=== PATIENT | male | born 1970 | race Caucasian/White ===

== ENCOUNTER 2020-05-16 15:40 | Emergency (ER) | payer OTHER ==
[2020-05-16] MEDS ORDERED: HYDROmorphone 0.5 MG/0.5 ML SYRINGE IVP STA ×2 (15:55→17:09)
[2020-05-16] MEDS ORDERED: DIAZEPAM 5 MG/ML 2 ML INJ IVP STA (15:55)
[2020-05-16] MEDS ORDERED: KETOROLAC 15 MG/ML 1 ML VIAL IVP STA (15:55)
--- NOTE | 2020-05-16 16:01 | ED ---
General Adult HPI - General Chief complaint: Extremity Problem,Nontraumatic Stated complaint: lower back pain Time Seen by Provider: 05/16/20 15:51 Source: patient, EMS Mode of arrival: EMS Limitations: no limitations - History of Present Illness Initial comments: 49 year-old male patient presents to the emergency department for evaluation of low back pain that radiates down the left leg. Patient states that symptoms started about a week ago, seemed to be improving, then worsened again today. Patient states he does generally have some element of back pain, but nothing like this. Patient states he feels some tingling around his left buttock and in his left foot which is new for him with this pain. He denies any saddle anesthesia or loss of bowel or bladder control. He denies any fever or chills. He denies any injury causing the pain. Patient denies any recent rash, cough, shortness of breath, chest pain, abdominal pain, nausea, vomiting, diarrhea, constipation, dizziness, hematuria, dysuria, urinary urgency, urinary frequency, headache, visual changes, or any other complaints. - Related Data Previous Rx's Medication Instructions Recorded Cyclobenzaprine [Flexeril] 10 mg PO TID #15 tab 05/16/20 Ibuprofen [Motrin] 600 mg PO Q8HR PRN #30 tab 05/16/20 methylPREDNISolone [Medrol Dose 4 mg PO DIRECTED #1 pack 05/16/20 Pack] Allergies Allergy/AdvReac Type Severity Reaction Status Date / Time No Known Allergies Allergy Verified 05/16/20 15:48 Review of Systems ROS Statement: Those systems with pertinent positive or pertinent negative responses have been documented in the HPI. ROS Other: All systems not noted in ROS Statement are negative. Past Medical History Past Medical History: No Reported History History of Any Multi-Drug Resistant Organisms: None Reported Past Surgical History: No Surgical Hx Reported Past Psychological History: No Psychological Hx Reported Smoking Status: Current every day smoker Past Alcohol Use History: Occasional Past Drug Use History: Marijuana General Exam Limitations: no limitations General appearance: alert, in no apparent distress, other (This is a well- developed, well-nourished adult male patient in no acute distress. Vital signs upon presentation are pulse 79, respirations 20, blood pressure 172/70, pulse ox 99% on room air.) Eye exam: Present: normal appearance, PERRL, EOMI. Absent: scleral icterus, conjunctival injection, periorbital swelling ENT exam: Present: normal exam, normal oropharynx, mucous membranes moist Respiratory exam: Present: normal lung sounds bilaterally. Absent: respiratory distress, wheezes, rales, rhonchi, stridor Cardiovascular Exam: Present: regular rate, normal rhythm, normal heart sounds. Absent: systolic murmur, diastolic murmur, rubs, gallop, clicks Extremities exam: Present: normal inspection, full ROM, normal capillary refill, other (Skin to the lower extremities is pink, warm, dry. Cap refills less than 3 seconds. Pedal and posttibial pulses are 2+ and equal bilaterally.). Absent: tenderness, pedal edema, joint swelling, calf tenderness Neurological exam: Present: alert, oriented X3, CN II-XII intact Psychiatric exam: Present: normal affect, normal mood Skin exam: Present: warm, dry, intact, normal color. Absent: rash Course Vital Signs 05/16/20 05/16/20 05/16/20 15:44 15:48 17:26 Temperature 97.9 F Pulse Rate 79 87 Respiratory 20 17 Rate Blood Pressure 172/70 134/98 O2 Sat by Pulse 99 97 Oximetry Medical Decision Making - Medical Decision Making 49-year-old male patient presents to the emergency department today for evaluation of left low back pain with radiation down the left leg. Physical examination did reveal good neurovascular status of the left lower extremity. He is neurologically intact with no focal deficits. No leg weakness noted. He denied injury causing the pain but states he was bent over working on steff or trim while at work last week. Patient was given IV pain medication. Upon reevaluation is resting comfortable in bed, he does report improvement of symptoms. Patient symptoms are consistent with lumbar radiculopathy. He has no concerning symptoms for cauda equina. He will be discharged with prescription for Medrol Dosepak, ibuprofen, Flexeril. He is given Tylenol codeine starter pack. He is instructed to follow-up with the primary care physician for recheck in 1-2 days. He is referred to orthopedics if his symptoms do not improve. Return parameters were discussed in detail. He verbalizes understanding and agrees this plan. Disposition Clinical Impression: Lumbar radiculopathy, Back pain Disposition: HOME SELF-CARE Condition: Good Instructions (If sedation given, give patient instructions): Lumbar Radicu lopathy (ED), Lower Back Exercises (ED) Additional Instructions: Apply warm moist heat to low back. Take medications as directed. Take medication with meals to prevent ulcer. Follow-up through primary care physician for recheck as soon as possible. Discuss possible referral to scheduling specialist for further evaluation. Return to the emergency department for any new, wors ening, or concerning symptoms. Prescriptions: Cyclobenzaprine [Flexeril] 10 mg PO TID #15 tab methylPREDNISolone [Medrol Dose Pack] 4 mg PO DIRECTED #1 pack Ibuprofen [Motrin] 600 mg PO Q8HR PRN #30 tab PRN Reason: Pain Is patient prescribed a controlled substance at d/c from ED?: No Referrals: Stew Angelo MD [STAFF PHYSICIAN] - 1-2 days Time of Disposition: 17:12
[2020-05-16 16:24] VITALS: TEMP 97.9
[2020-05-16] MEDS ORDERED: ACET/COD 300 MG/30 MG STARTER PACK 6 TAB BTL PO STA (17:10)
[2020-05-16] MEDS ORDERED: methylPREDNISolone SOD SUCCI 125 MG/2 ML VIAL IV STA (17:10)
[2020-05-16] MEDS ORDERED: CYCLOBENZAPRINE 10MG STARTER 3 TAB BTL PO STA (17:10)
[2020-05-16 17:26] VITALS: BP 134/98; PULSE 87; RESP 17
== END 2020-05-16 18:40 | disposition home or self-care (01) ==
LOC: EC 15:40
DX: M54.16 Radiculopathy, lumbar region (principal); F17.200 Nicotine dependence, unspecified, uncomplicated
CPT/HCPCS: 99283; 96374; 96375 ×2; 96376; J2930; J3360; J1170